=== PATIENT | female | born 1970 | race Caucasian/White ===

== ENCOUNTER 2016-11-18 06:45 | Inpatient (IN) | payer MEDICAID ==
[~2016-11-18] VITALS: Ht 180.3 cm; Wt 76.0 kg
[~2016-11-18 06:45] MED LIST: FERR324T8 PO; HYDR-3240 PO; LEVO750T26 PO; MAGN400T7 PO; NITR50CA PO; POTA500T PO
[2016-11-18] MEDS ORDERED: KETOROLAC 30 MG/1 ML ONE (07:21)
[2016-11-18] MEDS ORDERED: ONDANSETRON ODT 4 MG ONE (07:22)
[2016-11-18] MEDS ORDERED: ONDANSETRON ODT 4 MG PO ONE (07:30)
[2016-11-18] MEDS ORDERED: KETOROLAC 30 MG/1 ML IM ONE (07:30)
[2016-11-18 07:50] LABS: BLOOD UREA NITROGEN 19 mg/dL (7-18)
[2016-11-18] MEDS ORDERED: SODIUM CHLORIDE FLUSH 10ML SYR IVF ONE (09:00)
[2016-11-18] MEDS ORDERED: CEFTRIAXONE PMX 1GM/50ML 50 ML IV ONE (09:00)
[2016-11-18] MEDS ORDERED: SODIUM CHLORIDE 0.9% 1,000 ML IV ONE (09:05)
[2016-11-18] MEDS ORDERED: CEFTRIAXONE PMX 1GM/50ML 50 ML ONE (09:10)
[2016-11-18] MEDS ORDERED: SODIUM CHLORIDE FLUSH 10ML SYR IVF PRN (09:30)
[2016-11-18] MEDS ORDERED: MORPHINE SULFATE 4 MG/ML, 1ML IVPush PRN (09:30)
[2016-11-18] MEDS ORDERED: ONDANSETRON 2MG/ML, 2ML IVPush PRN ×2 (09:30→15:00)
[2016-11-18] MEDS ORDERED: FERR160T5 PO (09:34)
[2016-11-18] MEDS ORDERED: GABA300C10 PO (09:34)
[2016-11-18] MEDS ORDERED: MAGN400T36 PO (09:34)
[2016-11-18 10:30] VITALS: BP 120/75
[2016-11-18 10:41] LABS: DAU SCREEN DISCLAIMER
[2016-11-18 12:50] VITALS: BP 121/77
[2016-11-18] MEDS ORDERED: FENTANYL PF 250 MCG/5ML ONE (14:01)
[2016-11-18] MEDS ORDERED: MIDAZOLAM 1 MG/ML, 2ML ONE (14:02)
[2016-11-18] MEDS ORDERED: OMNIPAQUE 350 MG/ML, 50 ML BOTTLE INJ ONE (14:23)
[2016-11-18] MEDS ORDERED: hydrALAzine 20 MG/ML, 1ML IV PRN (15:00)
[2016-11-18] MEDS ORDERED: HYDROmorphone 1 MG/ML, 1ML IV PRN (15:00)
[2016-11-18] MEDS ORDERED: PROMETHAZINE 25 MG/ML, 1ML IV PRN (15:00)
[2016-11-18] MEDS ORDERED: HYDROcodone/APAP 7.5-325MG/15ML UDC PO PRN (15:00)
[2016-11-18] MEDS ORDERED: MIDAZOLAM 1 MG/ML, 2ML IV PRN (15:00)
[2016-11-18] MEDS ORDERED: EPHEDRINE 50 MG/ML, 1ML IVPush PRN (15:00)
[2016-11-18] MEDS ORDERED: OXYcodone 5 MG/5 ML ORAL.SOL UDC PO PRN (15:00)
[2016-11-18] MEDS ORDERED: MEPERIDINE/PF 25MG/0.5ML IVPush PRN (15:00)
[2016-11-18] MEDS ORDERED: FENTANYL PF 100 MCG/2ML IV PRN (15:00)
[2016-11-18] MEDS ORDERED: ACETAMINOPHEN 325 MG TABLET PO PRN (15:00)
[2016-11-18] MEDS ORDERED: LABETALOL 5MG/ML, 20ML IV PRN (15:00)
[2016-11-18] MEDS ORDERED: SODIUM CHLORIDE 0.9% 1,000 ML IV SCH (15:31)
[2016-11-18] MEDS ORDERED: ONDANSETRON ODT 4 MG PO PRN (16:00)
[2016-11-18] MEDS ORDERED: ONDANSETRON 2MG/ML, 2ML ONE (16:19)
[2016-11-18] MEDS ORDERED: PROPOFOL 10 MG/ML, 20ML ONE (16:19)
[2016-11-18] MEDS ORDERED: SUCCINYLCHOLINE 20 MG/ML, 10ML ONE (16:19)
[2016-11-18] MEDS ORDERED: DEXAMETHASONE 4 MG/ML, 1ML ONE (16:19)
[2016-11-18] MEDS ORDERED: DIPHENHYDRAMINE 50 MG/ML, 1ML IV PRN (16:30)
[2016-11-18] MEDS: HYDROcodone/APAP 5/325 TABLET PO PRN (18:28)
[2016-11-18] MEDS: POTASSIUM CHLORIDE 20 MEQ in SODIUM CHLORIDE 0.9% 1,000 ML IV SCH (18:28)
[2016-11-18 19:37] VITALS: BP 127/78
[2016-11-18] MEDS: CEFTRIAXONE PMX 1GM/50ML 50 ML IV SCH (21:22)
[2016-11-18] MEDS: GABAPENTIN 300 MG CAPSULE PO SCH (21:23)
[2016-11-18] MEDS: ONDANSETRON 2MG/ML, 2ML IVPush PRN (21:28)
[2016-11-18 23:25] VITALS: BP 109/61
[2016-11-19] MEDS: HYDROcodone/APAP 5/325 TABLET PO PRN ×3 (02:19→23:31)
[2016-11-19 03:45] VITALS: BP 103/61
[2016-11-19] MEDS ORDERED: VANCOMYCIN PER PHARMACY MC PRN (04:00)
[2016-11-19] MEDS ORDERED: PHARMACOKINETIC MONITORING MC PRN (04:30)
[2016-11-19] MEDS: VANCOMYCIN 1,400 MG in SODIUM CHLORIDE 0.9% 250 ML IV SCH (05:18)
[2016-11-19 05:30] LABS: BLOOD UREA NITROGEN 16 mg/dL (7-18)
[2016-11-19 06:50] VITALS: BP 115/71
[2016-11-19] MEDS: CEFTRIAXONE PMX 1GM/50ML 50 ML IV SCH (08:55)
[2016-11-19] MEDS: MAGNESIUM OXIDE 400 MG TABLET PO SCH (08:55)
[2016-11-19] MEDS: POTASSIUM CHLORIDE 20 MEQ in SODIUM CHLORIDE 0.9% 1,000 ML IV SCH ×2 (08:55→22:24)
[2016-11-19] MEDS: GABAPENTIN 300 MG CAPSULE PO SCH ×2 (08:55→23:02)
[2016-11-19] MEDS: FERROUS SULFATE 325 MG TABLET PO SCH (08:56)
[2016-11-19 13:05] VITALS: BP 113/76
[2016-11-19] MEDS ORDERED: CEFTAROLINE 600 MG in SODIUM CHLORIDE 0.9% 100 ML IV SCH (13:30)
[2016-11-19] MEDS: HEPARIN 5,000 UNITS/ML, 1ML SQ SCH (14:22)
[2016-11-19] MEDS: OXYcodone/APAP 5/325MG TABLET PO PRN (14:26)
[2016-11-19] MEDS ORDERED: POTASSIUM CHLORIDE 20 MEQ in SODIUM CHLORIDE 0.9% 1,000 ML IV SCH (15:31)
[2016-11-19 20:33] VITALS: BP 114/70
[2016-11-20 02:23] VITALS: BP 117/77
[2016-11-20] MEDS: HEPARIN 5,000 UNITS/ML, 1ML SQ SCH ×2 (02:56→14:01)
[2016-11-20] MEDS: VANCOMYCIN 1,400 MG in SODIUM CHLORIDE 0.9% 250 ML IV SCH (04:52)
[2016-11-20 05:14] LABS: BLOOD UREA NITROGEN 10 mg/dL (7-18)
[2016-11-20] MEDS: POTASSIUM CHLORIDE 20 MEQ in SODIUM CHLORIDE 0.9% 1,000 ML IV SCH ×2 (07:00→08:08)
[2016-11-20 07:05] VITALS: BP 113/69
[2016-11-20] MEDS: MAGNESIUM OXIDE 400 MG TABLET PO SCH (08:00)
[2016-11-20] MEDS: GABAPENTIN 300 MG CAPSULE PO SCH ×2 (08:00→22:07)
[2016-11-20] MEDS: FERROUS SULFATE 325 MG TABLET PO SCH (08:00)
[2016-11-20] MEDS ORDERED: MIDAZOLAM 1 MG/ML, 2ML ONE (09:26)
[2016-11-20] MEDS ORDERED: FENTANYL PF 250 MCG/5ML ONE (09:26)
[2016-11-20] MEDS ORDERED: DEXAMETHASONE 4 MG/ML, 1ML ONE (10:05)
[2016-11-20] MEDS ORDERED: ONDANSETRON 2MG/ML, 2ML ONE (10:05)
[2016-11-20] MEDS ORDERED: PROPOFOL 10 MG/ML, 20ML ONE (10:05)
[2016-11-20] MEDS ORDERED: OMNIPAQUE 350 MG/ML, 50 ML BOTTLE ONE (11:01)
[2016-11-20] MEDS ORDERED: EPHEDRINE 50 MG/ML, 1ML IVPush PRN (11:30)
[2016-11-20] MEDS ORDERED: MEPERIDINE/PF 25MG/0.5ML IVPush PRN (11:30)
[2016-11-20] MEDS ORDERED: ALBUTEROL SULFATE 2.5 MG/3 ML NPPB PRN (11:30)
[2016-11-20] MEDS ORDERED: PROMETHAZINE 25 MG/ML, 1ML IV PRN (11:30)
[2016-11-20] MEDS ORDERED: HYDROmorphone 1 MG/ML, 1ML IV PRN (11:30)
[2016-11-20] MEDS ORDERED: ONDANSETRON 2MG/ML, 2ML IVPush PRN (11:30)
[2016-11-20] MEDS ORDERED: KETOROLAC 30 MG/1 ML IV PRN (11:30)
[2016-11-20] MEDS ORDERED: ACETAMINOPHEN 325 MG TABLET PO PRN (11:30)
[2016-11-20] MEDS ORDERED: LABETALOL 5MG/ML, 20ML IV PRN (11:30)
[2016-11-20] MEDS ORDERED: hydrALAzine 20 MG/ML, 1ML IV PRN (11:30)
[2016-11-20] MEDS ORDERED: METOPROLOL 1 MG/ML, 5ML IV PRN (11:30)
[2016-11-20] MEDS ORDERED: OXYcodone 5 MG/5 ML ORAL.SOL UDC PO PRN (11:30)
[2016-11-20] MEDS ORDERED: FENTANYL PF 100 MCG/2ML IV PRN (11:30)
[2016-11-20] MEDS ORDERED: MIDAZOLAM 1 MG/ML, 2ML IV PRN (11:30)
[2016-11-20 12:06] VITALS: BP 108/42
[2016-11-20] MEDS: LACTATED RINGERS 1,000 ML IV SCH ×2 (12:52→22:08)
[2016-11-20] MEDS ORDERED: FLUMAZENIL 0.1 MG/1 ML, 5ML ONE (13:08)
[2016-11-20] MEDS ORDERED: MIDAZOLAM 1 MG/ML, 5ML ONE (13:08)
[2016-11-20] MEDS ORDERED: FENTANYL PF 100 MCG/2ML ONE (13:08)
[2016-11-20] MEDS ORDERED: NALOXONE 1 MG/ML, 2ML ONE (13:08)
[2016-11-20] MEDS ORDERED: LIDOCAINE 1%, 20ML ONE (13:40)
[2016-11-20] MEDS: HYDROcodone/APAP 5/325 TABLET PO PRN (16:46)
[2016-11-20 20:14] VITALS: BP 129/78
[2016-11-20] MEDS: OXYcodone/APAP 5/325MG TABLET PO PRN (22:07)
[2016-11-21 00:21] VITALS: BP 122/71
[2016-11-21] MEDS: HEPARIN 5,000 UNITS/ML, 1ML SQ SCH ×2 (00:55→12:00)
[2016-11-21 02:52] VITALS: BP 105/66
[2016-11-21 05:15] LABS: BLOOD UREA NITROGEN 13 mg/dL (7-18)
[2016-11-21] MEDS: LACTATED RINGERS 1,000 ML IV SCH ×2 (08:30→18:30)
[2016-11-21] MEDS: MAGNESIUM OXIDE 400 MG TABLET PO SCH (12:00)
[2016-11-21] MEDS: GABAPENTIN 300 MG CAPSULE PO SCH ×2 (12:00→20:55)
[2016-11-21] MEDS: FERROUS SULFATE 325 MG TABLET PO SCH (12:00)
[2016-11-21] MEDS ORDERED: POLYETHYLENE GLYCOL 17 GM PACKET PO ONE (13:00)
[2016-11-21] MEDS: HYDROcodone/APAP 5/325 TABLET PO PRN ×2 (13:10→20:55)
[2016-11-21] MEDS ORDERED: POLYETHYLENE GLYCOL 17 GM PACKET ONE (14:34)
[2016-11-21] MEDS ORDERED: SENNA/DOCUSATE TABLET ONE (14:34)
[2016-11-21] MEDS: SENNOSIDES 8.6 MG TABLET PO SCH (14:40)
[2016-11-21] MEDS: VANCOMYCIN 1,400 MG in SODIUM CHLORIDE 0.9% 250 ML IV SCH (16:50)
[2016-11-22] MEDS: HEPARIN 5,000 UNITS/ML, 1ML SQ SCH ×2 (00:55→15:37)
[2016-11-22] MEDS: OXYcodone/APAP 5/325MG TABLET PO PRN (00:55)
[2016-11-22] MEDS: ONDANSETRON 2MG/ML, 2ML IVPush PRN (00:55)
[2016-11-22] MEDS: LACTATED RINGERS 1,000 ML IV SCH ×2 (04:30→14:30)
[2016-11-22] MEDS: VANCOMYCIN 1,400 MG in SODIUM CHLORIDE 0.9% 250 ML IV SCH ×2 (05:20→16:59)
[2016-11-22] MEDS: FERROUS SULFATE 325 MG TABLET PO SCH (07:50)
[2016-11-22] MEDS: GABAPENTIN 300 MG CAPSULE PO SCH ×2 (07:50→22:07)
[2016-11-22] MEDS: MAGNESIUM OXIDE 400 MG TABLET PO SCH (07:50)
[2016-11-22] MEDS: HYDROcodone/APAP 5/325 TABLET PO PRN ×3 (08:03→22:07)
[2016-11-22] MEDS: SENNOSIDES 8.6 MG TABLET PO SCH (09:00)
[2016-11-22 12:50] VITALS: BP 119/76
[2016-11-22] MEDS ORDERED: BISACODYL 10 MG SUPP ONE (15:43)
[2016-11-22] MEDS ORDERED: BISACODYL 10 MG SUPP PR ONE (16:00)
[2016-11-22 20:06] VITALS: BP 121/81
[2016-11-23 02:14] VITALS: BP 112/64
[2016-11-23] MEDS: LACTATED RINGERS 1,000 ML IV SCH (03:38)
[2016-11-23] MEDS: HYDROcodone/APAP 5/325 TABLET PO PRN ×2 (03:39→09:31)
[2016-11-23] MEDS: HEPARIN 5,000 UNITS/ML, 1ML SQ SCH ×2 (03:39→15:59)
[2016-11-23 05:25] LABS: BLOOD UREA NITROGEN 7 mg/dL (7-18)
[2016-11-23] MEDS: VANCOMYCIN 1,400 MG in SODIUM CHLORIDE 0.9% 250 ML IV SCH ×2 (05:31→17:04)
[2016-11-23 08:00] VITALS: BP 119/69
[2016-11-23] MEDS: SENNOSIDES 8.6 MG TABLET PO SCH (09:33)
[2016-11-23] MEDS: FERROUS SULFATE 325 MG TABLET PO SCH (09:33)
[2016-11-23] MEDS: MAGNESIUM OXIDE 400 MG TABLET PO SCH (09:33)
[2016-11-23] MEDS: GABAPENTIN 300 MG CAPSULE PO SCH ×2 (09:33→21:04)
[2016-11-23 13:26] VITALS: BP 120/68
[2016-11-23 19:19] VITALS: BP 113/73
[2016-11-23] MEDS: OXYcodone/APAP 5/325MG TABLET PO PRN (21:06)
[2016-11-24] MEDS: HEPARIN 5,000 UNITS/ML, 1ML SQ SCH (03:29)
[2016-11-24 04:07] VITALS: BP 118/58
[2016-11-24] MEDS: HYDROcodone/APAP 5/325 TABLET PO PRN ×2 (04:29→10:27)
[2016-11-24] MEDS: VANCOMYCIN 1,400 MG in SODIUM CHLORIDE 0.9% 250 ML IV SCH (06:21)
[2016-11-24 07:05] VITALS: BP 115/67
[2016-11-24 08:38] LABS: DAU SCREEN DISCLAIMER
[2016-11-24] MEDS ORDERED: DOXY100T PO (10:09)
[2016-11-24] MEDS ORDERED: MAGN400T26 PO (10:10)
[2016-11-24] MEDS: FERROUS SULFATE 325 MG TABLET PO SCH (10:27)
[2016-11-24] MEDS: MAGNESIUM OXIDE 400 MG TABLET PO SCH (10:27)
[2016-11-24] MEDS: GABAPENTIN 300 MG CAPSULE PO SCH (10:27)
[2016-11-24] MEDS: SENNOSIDES 8.6 MG TABLET PO SCH (10:27)
[2016-11-24] MEDS ORDERED: PNEUMOCOCCAL 23 VACCINE IM-VACC ONE (12:00)
[2016-11-24] MEDS ORDERED: LINE600T37 PO (14:00)
[2016-11-24 14:30] VITALS: BP 120/74
[2016-11-24] MEDS ORDERED: TRAM50TA2 PO (15:00)
== END 2016-11-24 15:50 | disposition home or self-care (01) | DRG 872 ==
LOC: ED 07:06 → EDIP 09:05 → 4NOR 10:28
PROVIDERS: ADMIT Internal Medicine; ATTEND Internal Medicine
PROC: 0T768DZ Dilation of Right Ureter with Intraluminal Device, Via Natural or Artificial Opening Endoscopic (ICD-10-PCS; 2016-11-18)
PROC: 0TP98DZ Removal of Intraluminal Device from Ureter, Via Natural or Artificial Opening Endoscopic (ICD-10-PCS; 2016-11-20)
PROC: 0T9330Z Drainage of Right Kidney Pelvis with Drainage Device, Percutaneous Approach (ICD-10-PCS; principal; 2016-11-20 09:45)
DX: A41.01 Sepsis due to Methicillin susceptible Staphylococcus aureus (principal); N17.9 Acute kidney failure, unspecified; N11.1 Chronic obstructive pyelonephritis; D50.9 Iron deficiency anemia, unspecified; E11.9 Type 2 diabetes mellitus without complications; E78.5 Hyperlipidemia, unspecified; I10 Essential (primary) hypertension; F17.210 Nicotine dependence, cigarettes, uncomplicated; K80.20 Calculus of gallbladder without cholecystitis without obstruction; B19.20 Unspecified viral hepatitis C without hepatic coma; F15.10 Other stimulant abuse, uncomplicated; Z93.6 Other artificial openings of urinary tract status; Z91.19 Patient's noncompliance with other medical treatment and regimen
CPT/HCPCS: 36415; 50432; 74176; 74420; 76000; 76942; 80048; 80202; 80307; 81001; 82040; 83605; 84703; 85025; 87040; 87077; 87086; 87150; 87186; 90732; 93306; 96372; 99156; 99157; C1894; J0696; J1100; J1644; J1885; J2250; J2405; J2704; J3010; J3370; J3480; J3490; Q0162; Q9967; C1729; C1758; C1769; C2617; J0330; J2310; J7030; J7050; J7120

== ENCOUNTER → 2017-01-11 | Outpatient (CLI) | payer MEDICAID ==
[~2017-01-11] MED LIST changes: +DOXY100T PO; +FERR160T5 PO; +FLUC150T2 PO; +GABA300C10 PO; +LINE600T37 PO; +MAGN400T26 PO; +MAGN400T36 PO; +NAPR500T3 PO; +TRAM50TA2 PO
[2017-01-11 12:50] LABS: PATH.CAST-FLAG NOT PRESENT; SPERM-FLAG NOT PRESENT; SRC-FLAG NOT PRESENT; XTAL-FLAG NOT PRESENT; YLC-FLAG NOT PRESENT
[2017-01-11 12:51] LABS: ASPARTATE AMINO TRANSFERASE 26 U/L (15-37); BLOOD UREA NITROGEN 15 mg/dL (7-18)
== END | disposition home or self-care (01) ==
LOC: STAR 11:32
PROVIDERS: ATTEND Urology
DX: Z01.818 Encounter for other preprocedural examination (principal); R94.31 Abnormal electrocardiogram [ECG] [EKG]; N20.2 Calculus of kidney with calculus of ureter; E11.9 Type 2 diabetes mellitus without complications; E78.5 Hyperlipidemia, unspecified; I10 Essential (primary) hypertension; R79.1 Abnormal coagulation profile
CPT/HCPCS: 36415; 80053; 81001; 85025; 85610; 85730; 87086; 93005

== ENCOUNTER 2017-01-25 07:10 | Day surgery (SDC) | payer MEDICAID ==
[~2017-01-25] VITALS: Ht 180.3 cm; Wt 74.7 kg
[2017-01-25 08:46] VITALS: BP 106/67
[2017-01-25] MEDS ORDERED: LACTATED RINGERS 1,000 ML IV SCH (08:50)
[2017-01-25] MEDS ORDERED: LIDOCAINE 1%, 2ML ONE (08:53)
[2017-01-25] MEDS ORDERED: LIDOCAINE 1%, 2ML SQ PRN (09:00)
[2017-01-25 09:06] LABS: DAU SCREEN DISCLAIMER
[2017-01-25 09:15] LABS: HCG UR OBC PASS
[2017-01-25] MEDS ORDERED: FENTANYL PF 100 MCG/2ML ONE (11:59)
[2017-01-25] MEDS ORDERED: OXYcodone 5 MG/5 ML ORAL.SOL UDC PO PRN (12:30)
[2017-01-25] MEDS ORDERED: HYDROmorphone 1 MG/ML, 1ML IV PRN (12:30)
[2017-01-25] MEDS ORDERED: FENTANYL PF 100 MCG/2ML IV PRN (12:30)
[2017-01-25] MEDS ORDERED: ONDANSETRON 2MG/ML, 2ML IVPush PRN (12:30)
[2017-01-25] MEDS ORDERED: MIDAZOLAM 1 MG/ML, 2ML IV PRN (12:30)
[2017-01-25] MEDS ORDERED: hydrALAzine 20 MG/ML, 1ML IV PRN (12:30)
[2017-01-25] MEDS ORDERED: LABETALOL 5MG/ML, 20ML IV PRN (12:30)
[2017-01-25] MEDS ORDERED: OXYcodone 5 MG/5 ML ORAL.SOL UDC ONE (13:51)
[2017-01-25] MEDS ORDERED: ROCURONIUM 10 MG/ML ONE (17:04)
[2017-01-25] MEDS ORDERED: SUCCINYLCHOLINE 20 MG/ML, 10ML ONE (17:04)
[2017-01-25] MEDS ORDERED: DEXAMETHASONE 4 MG/ML, 1ML ONE (17:04)
[2017-01-25] MEDS ORDERED: PROPOFOL 10 MG/ML, 50ML ONE (17:04)
[2017-01-25] MEDS ORDERED: ONDANSETRON 2MG/ML, 2ML ONE (17:04)
== END 2017-01-25 15:30 ==
LOC: OUT 07:10
PROVIDERS: ATTEND Urology
DX: N20.0 Calculus of kidney (principal); F17.210 Nicotine dependence, cigarettes, uncomplicated; Z87.39 Personal history of other diseases of the musculoskeletal system and connective tissue; Z87.440 Personal history of urinary (tract) infections; Z88.8 Allergy status to other drugs, medicaments and biological substances
CPT/HCPCS: 50590; 74000; 80307; 81025; J0330; J1100; J2405; J2704; J3010; J3490; J7120